=== PATIENT | female | born 1935 | race American Indian/Alaskan Native ===

== ENCOUNTER 2018-12-15 14:38 | Outpatient (CLI) | payer MEDICARE ==
--- NOTE | 2018-12-15 16:10 | XRay Report ---
XRAY RIGHT MIDDLE FINGER THREE VIEWS: 12/15/18 14:38:00 CLINICAL: Finger deformity FINDINGS: No fracture or dislocation. Severe arthritis of the DIP joint with central loss of the joint, a central erosion and large gull-wing osteophytes Similar but slightly less severe changes in the PIP joint with both central and marginal erosions and smaller gull-wing osteophytes. Diffuse soft tissue swelling of the digit. No fracture or dislocation. 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 The differential includes rheumatoid and psoriatic arthritis as well as other inflammatory arthritides.
--- NOTE | 2018-12-15 16:18 | Mammography Report ---
BILATERAL DIGITAL SCREENING MAMMOGRAM with CAD: 12/15/18 CLINICAL: Routine screening. COMPARISON:None available. However, a prior mammogram was apparently done at [place], [place]. FINDINGS: The breasts are heterogeneously dense, which may obscure small masses. Left upper outer parenchymal asymmetry requires comparison with a prior mammogram or additional imaging.No architectural distortion or suspicious calcifications.The right breast is negative. Scattered bilateral benign calcifications. IMPRESSION: Right asymmetry requiring further evaluation. BI-RADS CATEGORY: 0 -- Additional Evaluation Required RECOMMENDATION: Comparison with a previous mammogram. We will attempt to obtain a prior mammogram for comparison. If we do not obtain a prior mammogram within 30 days, a revised report will be issued recommending a recall for additional imaging. Please be advised that the patient should not schedule an appointment for return until adequate time (at least 2 weeks) has passed for us to obtain the prior mammogram. COMMENT: 1. Dense breast tissue, i.e., adenosis, fibrocystic changes, etc., may obscure an underlying neoplasm. 2. Approximately 10% of cancers are not detected with mammography. 3. A negative mammography report should not delay biopsy if a clinically suspicious mass is present. COMMENT: Patient follow-up letters are generated via our [employer] application.
== END 2018-12-15 14:39 | disposition home or self-care (01) ==
LOC: SPVIMAG 14:38
PROVIDERS: ATTEND Internal Medicine
DX: Z12.31 Encounter for screening mammogram for malignant neoplasm of breast (principal); M06.841 Other specified rheumatoid arthritis, right hand
CPT/HCPCS: 77067

== ENCOUNTER 2018-12-23 07:50 | Outpatient (CLI) | payer MEDICARE ==
--- NOTE | 2018-12-23 09:35 | Magnetic Resonance Report ---
MRI BRAIN WITHOUT CONTRAST INDICATION: Memory loss or impairment. COMPARISON: None similar. FINDINGS: Noncontrast multiplanar and multisequence MRI of the brain demonstrates symmetric ventricles and sulci, well age-appropriate. No significant periventricular white matter FLAIR or T2-weighted hyperintensities. No acute infarct, hemorrhage, mass effect or midline shift. No abnormal extraaxial masses or fluid collections. Normal major intracranial vascular flow voids. Normal posterior fossa with preserved basilar cisterns and symmetric seventh and eighth nerve complexes. Normal imaged eye globes. Leftward nasal septal bowing. Clear imaged paranasal sinuses and mastoid air cells. Mild susceptibility artifact from few radiopaque dental material noted. Normal midline structures without evidence of Chiari malformation. However, approximately 2.8 cm parietal skull lesion posterior midline as on sagittal images 10-14 worrisome for metastatic/neoplastic. C4-C5 degenerative changes incidentally seen. CONCLUSION: 1. Approximately 2.8 cm parietal skull lesion posterior midline not entirely excluded for metastatic/neoplastic process. Please also correlate clinically and further evaluate/image, as appropriate. 2. Normal MRI appearance of the brain with few other incidental findings, as above. Thank you for the opportunity to participate in this patient's care.
== END 2018-12-23 07:51 | disposition home or self-care (01) ==
LOC: MRI 07:50
PROVIDERS: ATTEND Internal Medicine
DX: R41.3 Other amnesia (principal); M47.812 Spondylosis without myelopathy or radiculopathy, cervical region; M20.001 Unspecified deformity of right finger(s)
CPT/HCPCS: 70551

== ENCOUNTER 2019-01-26 10:41 | Outpatient (CLI) | payer MEDICARE ==
--- NOTE | 2019-01-28 15:25 | Magnetic Resonance Report ---
PROCEDURE: MR BRAIN WO/W CON TECHNIQUE: Magnetic resonance imaging of the brain was performed before and after the IV injection o f paramagnetic contrast. HISTORY: SKULL LESION/733.90 DISORDER OF BONE/CARTILAGE/M89.9 DISORDER OF MEMORY LOSS COMPARISONS: MRI brain December 14, 2018. FINDINGS: Low T1 and T2 signal with slight heterogeneous enhancement in the right parietal convexity calvarium and also in the left occipital calvarium are concerning for metastatic disease. Right parietal calvar ial lesion measures 2.4 cm and the left occipital lesion measures 1.2 cm. Other smaller lesions are n ot entirely excluded. Midline structures are unremarkable. There is no tonsillar ectopy. Age appropriate dee-white matter differentiation is noted. There is no hydrocephalus. There is no mass. There is no hemorrhage. There is no midline shift. There is no restricted diffusion to suggest acute ischemia. The CP angles are grossly noted. Major flow voids are present. After the administration of contrast, no abnormal enhancing lesions are identified. Retention cyst right sphenoid sinus measures 1 cm. Globes are intact. Extracranial soft tissues are intact. IMPRESSION: * Comparison with prior will be made as an addendum once requested prior images and report are provi ded. * Calvarial lesions are concerning for metastatic disease. Bone scan may be helpful if clinically in dicated. Differential diagnosis includes bone lesions, epidermoid lesions and the metabolic disorders . * Otherwise, no acute intracranial findings. This document is electronically signed by Casey Irvin MD., January 28 2019 03:23:45 PM ET
== END 2019-01-26 10:42 | disposition home or self-care (01) ==
LOC: MRI 10:41
PROVIDERS: ATTEND Internal Medicine
DX: J32.3 Chronic sphenoidal sinusitis (principal); N83.291 Other ovarian cyst, right side; M79.9 Soft tissue disorder, unspecified
CPT/HCPCS: 36415; 70553; 82565; 84520; A9577

== ENCOUNTER 2019-03-29 11:05 | Outpatient (CLI) | payer MEDICARE ==
--- NOTE | 2019-03-29 13:10 | XRay Report ---
SACROILIAC JOINTS HISTORY: Lower back pain after fall COMPARISON: None. TECHNIQUE: 3 views of the sacroiliac joints were obtained. FINDINGS: Bones: No fracture or dislocation. Joint spaces: Maintained. Soft tissues: No significant abnormality. Additional findings: None. IMPRESSION: 1. No significant abnormality. Signer Name: Baudilio Gonzalez MD Signed: 03/29/2019 1:05 PM Workstation Name: [id number]
--- NOTE | 2019-03-29 13:11 | XRay Report ---
XR spine lumbosacral 2-3V INDICATION / CLINICAL INFORMATION: REAR PAIN/LOWER BACK PAIN. COMPARISON: None available. FINDINGS: BONES/JOINT(S): No vertebral fracture. Grade 1 anterolisthesis of L4 and L5 that appears to be second bianka to advanced facet joint degenerative change at L4-L5. Moderate degenerative disc disease at L4-5 and L5-S1 with disc height loss, endplate sclerosis, and endplate osteophyte formation. No aggressive appearing bone lesions. Otherwise normal alignment. SOFT TISSUES: Atherosclerosis in the abdominal aorta. ADDITIONAL FINDINGS: None. Signer Name: Baudilio Gonzalez MD Signed: 03/29/2019 1:06 PM Workstation Name: [id number]
--- NOTE | 2019-03-29 13:11 | XRay Report ---
SACRUM COCCYX HISTORY: Low back pain. COMPARISON: None. TECHNIQUE: 2 views of the sacrum and coccyx were obtained. FINDINGS: Bones: No fracture or dislocation. Joint spaces: Maintained. Soft tissues: No significant abnormality. Additional findings: None. IMPRESSION: 1. No acute findings in the sacrum and coccyx. Signer Name: Baudilio Gonzalez MD Signed: 03/29/2019 1:07 PM Workstation Name: [id number]
== END 2019-03-29 11:06 | disposition home or self-care (01) ==
LOC: SPVIMAG 11:05
PROVIDERS: ATTEND Internal Medicine
DX: M51.37 Other intervertebral disc degeneration, lumbosacral region (principal); M47.816 Spondylosis without myelopathy or radiculopathy, lumbar region; E88.89 Other specified metabolic disorders; W19.XXXA Unspecified fall, initial encounter
CPT/HCPCS: 72100; 72202; 72220

== ENCOUNTER 2019-10-09 16:24 | Emergency (ER) | payer MEDICARE ==
--- NOTE | 2019-10-09 17:40 | XRay Report ---
XR ankle 2V LT INDICATION / CLINICAL INFORMATION: trauma/pain. COMPARISON: None available. FINDINGS: There are comminuted oblique fractures of the distal tibia and fibular shafts with lateral apex angul ation of the fractures and mild medial displacement of the distal fracture fragments as well as anter ior displacement of the distal fracture fragments. Signer Name: Baudilio Gonzalez MD Signed: 10/09/2019 5:36 PM Workstation Name: [id number]
[2019-10-09] MEDS ORDERED: KETOROLAC 30 MG/1 ML INJ IM ONE (17:51)
[2019-10-09] MEDS ORDERED: MORPHINE 4 MG/1 ML INJ IM ONE (17:51)
--- NOTE | 2019-10-09 19:14 | Emergency Department Report ---
ED Extremity Problem HPI - General Chief complaint: Extremity Injury, Lower Stated complaint: TWISTED ANKLE LFT Time Seen by Provider: 10/09/19 17:50 Source: family Mode of arrival: Wheelchair Limitations: No Limitations - History of Present Illness Initial comments: Patient is 84-year-old F Filipino female who suffered a fall prior to arrival. Patient was in her bathroom and tripped in the bathroom and now has pain to the left lower extremity. Patient is unable to bear weight. Patient states the pain is 8 out of 10 in severity. MD Complaint: extremity pain - Related Data Home Medications Medication Instructions Recorded Confirmed Last Taken Aspirin [Aspirin BABY CHEW TAB] 81 mg PO DAILY 10/09/19 10/09/19 Unknown Furosemide [Lasix TAB] 40 mg PO DAILY 10/09/19 10/09/19 Unknown Levothyroxine [Synthroid] 100 mg PO DAILY 10/09/19 10/09/19 Unknown Memantine 14 mg PO DAILY 10/09/19 10/09/19 Unknown Metoprolol [Lopressor TAB] 50 mg PO DAILY 10/09/19 10/09/19 Unknown Rosuvastatin Calcium [Crestor] 10 mg PO DAILY 10/09/19 10/09/19 Unknown donepeziL [Aricept] 10 mg PO DAILY 10/09/19 10/09/19 Unknown hydrALAZINE [Apresoline TAB] 50 mg PO DAILY 10/09/19 10/09/19 Unknown Allergies Allergy/AdvReac Type Severity Reaction Status Date / Time No Known Allergies Allergy Unverified 12/23/18 07:51 ED Review of Systems ROS: Stated complaint: TWISTED ANKLE LFT Other details as noted in HPI Comment: All other systems reviewed and negative ED Past Medical Hx - Past Medical History Previous Medical History?: Yes Hx Hypertension: Yes - Surgical History Past Surgical History?: No - Social History Smoking Status: Never Smoker Substance Use Type: None - Medications Home Medications: Home Medications Medication Instructions Recorded Confirmed Last Taken Type Aspirin [Aspirin BABY CHEW TAB] 81 mg PO DAILY 10/09/19 10/09/19 Unknown History Furosemide [Lasix TAB] 40 mg PO DAILY 10/09/19 10/09/19 Unknown History Levothyroxine [Synthroid] 100 mg PO DAILY 10/09/19 10/09/19 Unknown History Memantine 14 mg PO DAILY 10/09/19 10/09/19 Unknown History Metoprolol [Lopressor TAB] 50 mg PO DAILY 10/09/19 10/09/19 Unknown History Rosuvastatin Calcium [Crestor] 10 mg PO DAILY 10/09/19 10/09/19 Unknown History donepeziL [Aricept] 10 mg PO DAILY 10/09/19 10/09/19 Unknown History hydrALAZINE [Apresoline TAB] 50 mg PO DAILY 10/09/19 10/09/19 Unknown History ED Physical Exam - General Limitations: No Limitations General appearance: alert, in no apparent distress - Head Head exam: Present: atraumatic, normocephalic - Eye Eye exam: Present: normal appearance - ENT ENT exam: Present: mucous membranes moist - Neck Neck exam: Present: normal inspection - Respiratory Respiratory exam: Present: normal lung sounds bilaterally. Absent: respiratory distress - Cardiovascular Cardiovascular Exam: Present: regular rate, normal rhythm. Absent: systolic murmur, diastolic murmur, rubs, gallop - GI/Abdominal GI/Abdominal exam: Present: soft, normal bowel sounds - Extremities Exam Extremities exam: Present: normal inspection - Expanded Lower Extremity Exam Left Lower Leg exam: Present: tenderness, swelling Neuro vascular tendon exam: Present: no vascular compromise. Absent: pulse deficit - Back Exam Back exam: Present: normal inspection - Neurological Exam Neurological exam: Present: alert, oriented X3 - Psychiatric Psychiatric exam: Present: normal affect, normal mood - Skin Skin exam: Present: warm, dry, intact, normal color. Absent: rash ED Course Vital Signs 10/09/19 10/09/19 17:48 17:57 Temperature 98.2 F Pulse Rate 60 Respiratory 16 16 Rate Blood Pressure 199/83 O2 Sat by Pulse 100 100 Oximetry ED Medical Decision Making - Radiology Data [facility] [address] [place] [address] XRay Report Signed Patient: ASAF ESCALANTE MR#: [id number] : 1935 Acct:[id number] Age/Sex: 84 / F ADM Date: 10/09/19 Loc: ED Attending Dr: Ordering Physician: ED MD MARY Date of Service: 10/09/19 Procedure(s): XR ankle 2V LT Accession Number(s): [id number] cc: ED MD MARY Fluoro Time In Minutes: XR ankle 2V LT INDICATION / CLINICAL INFORMATION: trauma/pain. COMPARISON: None available. FINDINGS: There are comminuted oblique fractures of the distal tibia and fibular shafts with lateral apex angulation of the fractures and mild medial displacement of the distal fracture fragments as well as anterior displacement of the distal fracture fragments. Signer Name: Baudilio Gonzalez MD Signed: 10/09/2019 5:36 PM Workstation Name: [id number] - Medical Decision Making Patient is 84-year-old F Filipino female who is presenting status post fall. Please see x-ray report. Patient was placed in a posterior long-leg splint. Patient will be transferred to [facility] for further care. Orthopedic services not available today at our facility Critical care attestation.: If time is entered above; I have spent that time in minutes in the direct care of this critically ill patient, excluding procedure time. ED Disposition Clinical Impression: Tibia/fibula fracture, shaft Qualifiers: Encounter type: initial encounter Fracture type: closed Laterality: left Qualified Code(s): S82.202A - Unspecified fracture of shaft of left tibia, initial encounter for closed fracture; S82.402A - Unspecified fracture of shaft of left fibula, initial encounter for closed fracture Disposition: DC/TX-70 ANOTHER TYPE HLTHCARE Is pt being admited?: No Does the pt Need Aspirin: No Condition: Stable Time of Disposition: 19:17
[2019-10-09] MEDS ORDERED: KETOROLAC 30 MG/1 ML INJ IV ONE (19:22)
[2019-10-09] MEDS ORDERED: MORPHINE 4 MG/1 ML INJ IV ONE ×2 (19:22→19:51)
[2019-10-09] MEDS ORDERED: ONDANSETRON 4 MG/2 ML INJ ONE (19:51)
[2019-10-09] MEDS ORDERED: ONDANSETRON 4 MG/2 ML INJ IV ONE (19:51)
[2019-10-09 20:04] LABS: Basophils # (Auto) 0.1 K/mm3 (0.0-0.1); Basophils % (Auto) 0.7 % (0.0-1.8); Eosinophils # (Auto) 0.1 K/mm3 (0.0-0.4); Eosinophils % (Auto) 0.4 % (0.0-4.3); Hemoglobin 13.8 gm/dl (10.1-14.3); Lymphocytes # (Auto) 1.7 K/mm3 (1.2-5.4); Lymphocytes % (Auto) 9.9 % (13.4-35.0); Mean Corpuscular HGB Conc 34 % (30-34); Mean Corpuscular Volume 88 fl (79-97); Platelet Count 189 K/mm3 (140-440); Red Blood Count 4.66 M/mm3 (3.65-5.03); Red Cell Distribution Width 13.9 % (13.2-15.2)
[2019-10-09 20:20] LABS: Calcium 9.9 mg/dL (8.4-10.2)
[2019-10-09 21:42] VITALS: BP 188/70
== END 2019-10-09 22:13 | disposition other institution (70) ==
LOC: ED 16:24
DX: S82.52XA Displaced fracture of medial malleolus of left tibia, initial encounter for closed fracture (principal); S82.832A Other fracture of upper and lower end of left fibula, initial encounter for closed fracture; I10 Essential (primary) hypertension; Z79.899 Other long term (current) drug therapy; W01.0XXA Fall on same level from slipping, tripping and stumbling without subsequent striking against object, initial encounter; Y93.89 Activity, other specified; Y92.89 Other specified places as the place of occurrence of the external cause; Y99.8 Other external cause status
CPT/HCPCS: 29505; 36415; 73600; 80048; 85025; 96374; 96375; 96376; 99285; J1885; J2270; J2405